=== PATIENT | female | born 1935 | race Caucasian/White ===

== ENCOUNTER 2017-10-21 11:30 | Emergency (ER) | payer MEDICARE ==
[~2017-10-21] VITALS: Ht 157.5 cm; Wt 63.5 kg
[~2017-10-21 11:30] MED LIST: AMAN100C16 PO; ASPI81TA2 PO; BECL8.7A5 INH; CALC-112 PO; CARB-61 PO; DOXY-160 PO; HYDR-1189 PO; LACT10SO66 PO; LEVO88TA5 PO; LISI-217 PO; NAPR250T PO; PRAM0.253 PO; PRAM0.5T3 PO; TIZA4TAB11 PO
[2017-10-21 11:33] VITALS: BP_SYST 187
[2017-10-21 12:19] LABS: BASOPHILS # (AUTO) 0.1 K/uL (0.0-0.2); BASOPHILS % (AUTO) 0.7 % (0.0-2.0); EOSINOPHILS # (AUTO) 0.2 K/uL (0.0-0.4); EOSINOPHILS % (AUTO) 2.4 % (0.0-4.0); HEMATOCRIT 37.6 % (36-48); LYMPHOCYTES # (AUTO) 1.2 K/uL (1.0-5.5); LYMPHOCYTES % (AUTO) 15.6 % (20.5-51.5); MEAN CORPUSCULAR HEMOGLOBIN 34 pg (27-31); MEAN CORPUSCULAR HGB CONC 35 % (32-36); MEAN CORPUSCULAR VOLUME 99 fL (79.0-98.0); MONOCYTES # (AUTO) 0.4 K/uL (0.0-1.0); MONOCYTES % (AUTO) 5.7 % (1.7-9.3); NEUTROPHILS # (AUTO) 5.8 K/uL (1.8-7.7); NEUTROPHILS % (AUTO) 75.6 % (40.0-70.0); PLATELET COUNT (AUTO) 369 K/uL (130-430); RED BLOOD CELL COUNT(AUTO) 3.82 MIL/uL (4.2-6.2); RED CELL DISTRIBUTION WIDTH 12.9 % (9.0-15.0); WHITE BLOOD COUNT (AUTO) 7.7 K/uL (4.8-10.8)
[2017-10-21 12:29] LABS: PROTHROMBIN TIME 9.9 SECS (9.5-12.5)
[2017-10-21 12:30] LABS: ANION GAP 9 (5-15); CALCIUM 9.6 mg/dL (8.4-11.0); CHLORIDE 103 mmol/L (98-107); CREATININE 0.78 mg/dL (0.55-1.30); GLUCOSE 117 mg/dL (70-99); POTASSIUM 3.3 mmol/L (3.5-5.1); SODIUM SERUM 140 mmol/L (136-145); UREA NITROGEN, BLOOD 16 mg/dL (8-21)
[2017-10-21 12:53] LABS: BILIRUBIN,URINE NEGATIVE (NEGATIVE); BLOOD, URINE NEGATIVE (NEGATIVE); CLARITY/URINE CLEAR (CLEAR); COLOR,URINE YELLOW (YELLOW); GLUCOSE,URINE NEGATIVE (NEGATIVE); KETONES,URINE NEGATIVE (NEGATIVE); LEUKOCYTE ESTERASE ,URINE NEGATIVE (NEGATIVE); NITRITE, URINE NEGATIVE (NEGATIVE); PROTEIN URINE NEGATIVE (NEGATIVE); UROBILINOGEN,URINE 0.2 (0.2-1.0)
[2017-10-21 13:11] LABS: ALANINE AMINOTRANSFERASE 9 U/L (12-78); ALBUMIN 3.5 g/dL (3.4-4.8); ASPARTATE AMINOTRANSFERASE 14 U/L (10-37); FREE T4 (FREE THYROXINE) 0.9 ng/dL (0.6-1.6); TOTAL BILIRUBIN 0.4 mg/dL (0.0-1.0)
[2017-10-21 13:11] LABS: BARBITURATE, URINE NEGATIVE (NEG <=200); BENZODIAZEPINE, URINE NEGATIVE (NEG <=150); CANNABINOID, URINE NEGATIVE (NEG <=50); COCAINE, URINE NEGATIVE (NEG <=150); METHAMPHETAMINES SCREEN,URINE NEGATIVE (NEG <=500); OPIATE, URINE NEGATIVE (NEG <=100); PHENCYCLIDINE SCREEN,URINE NEGATIVE (NEG <=25); UR TRICYCLIC ANTIDEPRESSANTS NEGATIVE (NEG <=300); URINE AMPHETAMINE NEGATIVE (NEG <=500); URINE METHADONE NEGATIVE (NEG <=200); URINE OXYCODONE SCREEN NEGATIVE (NEG <=100); URINE PROPOXYPHENE SCREEN NEGATIVE (NEG <=300)
[2017-10-21 13:12] LABS: ALCOHOL, BLOOD < 3 mg/dL (<10)
[2017-10-21] MEDS ORDERED: cloNIDine HCL 0.1 MG TABLET PO ONE (13:45)
[2017-10-21] MEDS ORDERED: POTASSIUM CHLORIDE 20 MEQ TAB.PRT.SR PO ONE (13:45)
[2017-10-21] MEDS ORDERED: ACETAMINOPHEN 325 MG TABLET PO ONE (14:00)
[2017-10-21 15:25] VITALS: BP_SYST 185
== END 2017-10-21 15:25 | disposition short-term general hospital (02) ==
LOC: SED 11:30
DX: G89.29 Other chronic pain (principal); I10 Essential (primary) hypertension; Z86.79 Personal history of other diseases of the circulatory system; G20 Parkinson's disease; Z79.82 Long term (current) use of aspirin; Z79.899 Other long term (current) drug therapy; Z88.2 Allergy status to sulfonamides
CPT/HCPCS: 36415; 71045; 74018; 80053; 80307; 81003; 82140; 83605; 83880; 84439; 84484; 85025; 85610; 87040; 93005; 99285; G0482